=== PATIENT | female | born 1960 | race Caucasian/White ===

== ENCOUNTER 2020-04-08 08:19 | Outpatient (CLI) | payer OTHER, SELFPAY ==
--- NOTE | ~2020-04-08 | MM_ITS ---
EXAMINATION: MM screening [facility] BI w brynn HISTORY: Screening mammogram TECHNIQUE: Craniocaudal and mediolateral oblique 3-D tomosynthesis images were obtained and synthetic 2-D images were generated. CAD analysis was submitted and interpreted. COMPARISON: 04/02/2019, 12/18/2017, 12/12/2016 bilateral digital screening mammogram examinations BREAST PARENCHYMAL COMPOSITION: There are scattered areas of fibroglandular density. FINDINGS: Stable circumscribed 3 mm opacity in posterior lower outer right breast. There is no eviden ce of suspicious mass, calcification, or architectural distortion to suggest malignancy in either mary jo ast. There has been no suspicious interval change. IMPRESSION: 1. No mammographic evidence of malignancy. 2. Recommend routine screening mammography in one year. BI-RADS Category 2: Benign finding(s). Reviewed, dictated and finalized at location A.
== END 2020-04-08 08:20 | disposition home or self-care (01) ==
PROVIDERS: PCP Internal Medicine; Visit Provider Obstetrics & Gynecology
DX: Z12.31 Encounter for screening mammogram for malignant neoplasm of breast (principal)
CPT/HCPCS: 77063; 77067

== ENCOUNTER 2021-04-25 08:06 | Outpatient (CLI) | payer OTHER, SELFPAY ==
--- NOTE | ~2021-04-25 | MM_ITS ---
EXAMINATION: MM screening [facility] BI w brynn HISTORY: Screening mammogram TECHNIQUE: Craniocaudal and mediolateral oblique 3-D tomosynthesis images were obtained and synthetic 2-D images were generated. CAD analysis was submitted and interpreted. COMPARISON: 04/08/2020, 04/02/2019, 12/18/2017 bilateral digital screening mammogram examinations BREAST PARENCHYMAL COMPOSITION: There are scattered areas of fibroglandular density. FINDINGS: Stable circumscribed 3 mm opacity in the posterior outer mid right breast. There is no evid ence of suspicious mass, calcification, or architectural distortion to suggest malignancy in either b reast. There has been no suspicious interval change. IMPRESSION: 1. No mammographic evidence of malignancy. 2. Recommend routine screening mammography in one year. BI-RADS Category 2: Benign finding(s). Reviewed, dictated and finalized at location B.
== END 2021-04-25 08:07 | disposition home or self-care (01) ==
LOC: ANHIMG 08:08
PROVIDERS: PCP Internal Medicine; Visit Provider Nurse Practitioner
DX: Z12.31 Encounter for screening mammogram for malignant neoplasm of breast (principal)
CPT/HCPCS: 77063; 77067

== ENCOUNTER 2023-05-18 10:23 | Outpatient (CLI) | payer OTHER, SELFPAY ==
--- NOTE | ~2023-05-18 | MM_ITS ---
EXAMINATION: MM screening [facility] BI w brynn HISTORY: Screening mammogram TECHNIQUE: Craniocaudal and mediolateral oblique 3-D tomosynthesis images were obtained and synthetic 2-D images were generated. CAD analysis was submitted and interpreted. COMPARISON: 04/25/2021, 04/08/2020, 04/02/2019 BREAST PARENCHYMAL COMPOSITION: There are scattered areas of fibroglandular density. FINDINGS: No suspicious mass, calcification, or architectural distortion are identified in either mary jo ast to suggest malignancy. There has been no suspicious interval change. IMPRESSION: 1. No mammographic evidence of malignancy. 2. Recommend routine screening mammography in one year. BI-RADS Category 1: Negative Reviewed, dictated and finalized at location A.
== END 2023-05-18 10:24 | disposition home or self-care (01) ==
LOC: ANHIMG 10:29
PROVIDERS: PCP Family Medicine; Visit Provider Obstetrics & Gynecology
DX: Z12.31 Encounter for screening mammogram for malignant neoplasm of breast (principal)
CPT/HCPCS: 77063; 77067

== ENCOUNTER 2024-07-16 16:10 | Outpatient (CLI) | payer OTHER, SELFPAY ==
--- NOTE | ~2024-07-16 | MM_ITS ---
EXAMINATION: MM screening [facility] BI w brynn HISTORY: Screening TECHNIQUE: Craniocaudal and mediolateral oblique 3-D tomosynthesis images were obtained and synthetic 2-D images were generated. CAD analysis was submitted and interpreted. COMPARISON: Comparison to multiple prior studies sequentially, with oldest reviewed study dated 10/2016. BREAST PARENCHYMAL COMPOSITION: Not dense: There are scattered areas of fibroglandular density. FINDINGS: There is no evidence of suspicious mass, calcification, or architectural distortion to sugg est malignancy in either breast. There has been no suspicious interval change. IMPRESSION: 1. No mammographic evidence of malignancy. 2. Recommend routine screening mammography in one year. BI-RADS Category 1: Negative Reviewed, dictated and finalized at location B.
== END 2024-07-16 16:11 | disposition home or self-care (01) ==
PROVIDERS: PCP Family Medicine; Visit Provider Family Medicine
DX: Z12.31 Encounter for screening mammogram for malignant neoplasm of breast (principal)
CPT/HCPCS: 77063; 77067

== ENCOUNTER 2025-08-10 07:52 | Outpatient (CLI) | payer MEDICARE, SELFPAY ==
--- NOTE | ~2025-08-10 | MM_ITS ---
EXAMINATION: MM screening [facility] BI w brynn HISTORY: Screening TECHNIQUE: Craniocaudal and mediolateral oblique 3-D tomosynthesis images were obtained and synthetic 2-D images were generated. CAD analysis was submitted and interpreted. COMPARISON: Comparison to multiple prior studies sequentially, with oldest reviewed study dated 12/18/2017. BREAST PARENCHYMAL COMPOSITION: Not dense: There are scattered areas of fibroglandular density. FINDINGS: There is no evidence of suspicious mass, calcification, or architectural distortion to suggest malignancy in either breast. There has been no suspicious interval change. IMPRESSION: 1. No mammographic evidence of malignancy. 2. Recommend routine screening mammography in one year. BI-RADS Category 1: Negative Reviewed, dictated and finalized at location B.
--- OUTSIDE RECORDS SUMMARY | 2025-08-10 07:59 | XMS_ITS | Encounter Summary ---
Author Organization [facility] Address [address] [place] [address] Phone Care Team Providers Care Fountain Clerk Name Role Phone Rodger Molina Primary Care Provider [phone] Nate Gonsalves MD Primary Care Provider [phone] Reason for Visit * Reason Onset Date Comments Skyirizi Maintenance Injections 09/27/2022 Encounter Details Date Type Department Care Team (Late st Contact Info) Description 09/27/2022 Telephone [facility] [address] [place] [address] 12th [place] [address] [place] [address] Yaritza Ogden Skyirizi Maintenance Injections Social History Tobacco Use Types Packs/Day Years Used Date Smoking Tobacco: Never Smokeless Tobacco: Never Alcohol Use Standard Drinks/Week Comments Never 0 (1 standard drink = 0.6 oz pur e alcohol) AUDIT-C Answer Date Recorded Q1: How often do you have a drink containing alc ohol? Never 10/24/2020 Average Number of Drinks Not on file 021 Frequency of Binge Drinking Not on file 10/14 Comments No Sex and Gender Information Value Date Recorded Sex Assigned at Not on file Legal Sex Female 6:59 PM HOSPICE CLINICAL MANAGER Gender Identity Female 05/06/2023 10:40 AM CDT Sexual Orientation Not on file documented as of this encounter Miscellaneous Notes * Telephone Encounter - Yaritza Ogden - 09/27/2022 7:37 AM CST Pt recently completed the 3 induction infusions of Skyrizi via [employer] program since the pts insurance denied the therapy. 3rd induction infusion was received through [facility] on09/17. First OBI maintenance injection is coming due 10/16/2022. Based on the Bridge program requirements, a formal denial is needed for the maintenance injections as well. Prescription has been routed to the pharmacy precert team for PA. Once denial is received, this information will then be sent to the Bridge Program for additional maintenance injection approval with the program. The pt will remain updated on this process. ICE CLINICAL MANAGER documented in this encounter Plan of Treatment Not on file documented as of this encounter Visit Diagnoses Not on filedocumented in this encounter Discontinued Medications Medication Sig Discontinue Reason Start Date End Da te risankizumab-rzaa (SKYRIZI) 60 mg/mL solution Infuse 10 mL (600 mg total) into a venous catheter every 4 (four) weeks for 3 doses To be infused by [facility] 07/12/2022 09/27/2022 documented as of this encounter Additional Health Concerns Infection Onset Date Last Indicated Resolved Time Exposure, COVID-19 Comment:Added automatically based on COVID19 lab answers indicating exposure risk 12/05/2023 12/05/2023 12/15/2023 3:[address] COVID: Suspected 12/05/2023 12/05/2023 12/05/2023 4:17 PM HOSPICE CLINICAL MANAGER COVID: Suspected 12/05/2023 12/05/2023 12/05/2023 8:19 PM HOSPICE CLINICAL MANAGER Exposure, COVID-19 Comment:Added automatically based on COVID19 lab answers indicating exposure risk 11/06/2024 11/06/2024 11/16/2024 3:[address] COVID: Suspected 11/06/2024 11/06/2024 11/06/2024 9:43 AM HOSPICE CLINICAL MANAGER documented as of this encounter Care Teams Fountain Clerk Relationship Specialty Start Date End Date Rodger Molina DO PCP - General Internal Medicine 03/31/19 01/30/23 Nate Gonsalves MD PCP - General Family Medicine 01/31/23 documented as of this encounter
--- OUTSIDE RECORDS SUMMARY | 2025-08-10 07:59 | XMS_ITS | Encounter Summary ---
Author Organization [facility] Address [address] [place] [address] Phone Care Team Providers Care Fish Farm Manager Name Role Phone Rodger Molina Primary Care Provider Nate Gonsalves MD Primary Care Provider [phone] Encounter Details Date Type Department Care Team (Late st Contact Info) Description 04/14/2021 Orders Only TO IM GASTROENTEROLOGY Scanning, Provider Social History Tobacco Use Types Packs/Day Years [...] on file Legal Sex Female 6:59 PM TRUCK RAILROAD AND BUS MOTOR MECHANIC Gender Identity Female 05/06/2023 10:40 AM CDT Sexual Orientation Not on file documented as of this encounter Plan of Treatment Not on file documented as of this encounter Procedures Procedure Name Priority Date/Time Associated Diagnosis Comments SCAN - LABS 04/14/2021 documented in this encounter Results * SCAN - LABS (04/14/2021) us Provider Scanning Final Result documented in this encounter Visit Diagnoses Not on filedocumented in this encounter Additional Health Concerns Infection Onset Date Last Indicated Resolved Time COVID: Suspected 09/17/2021 09/17/2021 09/17/2021 3:17 PM TRUCK RAILROAD AND BUS MOTOR MECHANIC Exposure, COVID-19 Comment:Added automatically based on COVID19 lab answers indicating exposure risk 08/09/2022 08/09/2022 08/19/2022 3:[address] COVID: Suspected 08/09/2022 08/09/2022 08/09/2022 4:32 PM CDT RSV, droplet 08/09/2022 08/09/2022 08/16/2022 3:05 AM CDT Exposure, COVID-19 Comment:Added automatically based on COVID19 lab answers indicating exposure risk 12/05/2023 12/05/2023 12/15/2023 3:[address] COVID: Suspected 12/05/2023 12/05/2023 12/05/2023 4:17 PM TRUCK RAILROAD AND BUS MOTOR MECHANIC COVID: Suspected 12/05/2023 12/05/2023 12/05/2023 8:19 PM TRUCK RAILROAD AND BUS MOTOR MECHANIC Exposure, COVID-19 Comment:Added automatically based on COVID19 lab answers indicating exposure risk 11/06/2024 11/06/2024 11/16/2024 3:[address] COVID: Suspected 11/06/2024 11/06/2024 11/06/2024 9:43 AM TRUCK RAILROAD AND BUS MOTOR MECHANIC documented as of this encounter Care Teams Fish Farm Manager Relationship Specialty Start Date End Date Rodger Molina DO PCP - General Internal Medicine 03/31/19 01/30/23 Nate Gonsalves MD PCP - General Family Medicine 01/31/23 documented as of this encounter
--- OUTSIDE RECORDS SUMMARY | 2025-08-10 07:59 | XMS_ITS | Encounter Summary ---
Author Organization [facility] Address 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
--- OUTSIDE RECORDS SUMMARY | 2025-08-10 07:59 | XMS_ITS | Clinical Summary ---
Author Organization [facility] Address [address] [place] [address] Care Team Providers Care Dust Mill Operator Name Role Phone Unavailable Primary Care Provider Unavailabl e Source Comments [facility],non-owned Affiliates and Associated Physician Practices is amultiple site organization consisting of ambulatory clinics and hospital sitesin [place], [place], [place] and [place]. This disclosure is being madepursuant to the Care Everywhere program and may not contain all information available regarding this patient. Last updated 18.[facility] Social History Tobacco Use Types Packs/Day Years Used Date Smoking Tobacco: Never Assessed Comments Unknown Sex and Gender Information Value Date Recorded Sex Assigned at Not on file Legal Sex Female 6:17 AM TEST MAN Gender Identity Not on file Sexual Orientation Not on file Plan of Treatment Health Maintenance Due Date Last Done Comments BONE DENSITY TESTING 1959 COLOGUARD (AGES 45-75) - COL ON CA SCREENING 1959 COLON MONITORING 1959 COLONOSCOPY - COLON CA SCREENING 1959 CT COLONOGRAPHY - COLON CA SCREENING 1959 Colorectal Cancer Screening 1959 FIT - COLON CA SCREENING 1959 FLEX SIG - COLON CA SCREENING 1959 LIPID TESTING 1959 MAMMOGRAM 1959 HIV SCREENING 1974 HEPATITIS C SCREENING 10/30/1977 DTAP/TDAP/TD VACCINES (1 - Tdap) 1978 PNEUMOCOCCAL VACCINE 50+ (1 of 1 - PCV) 2009 ZOSTER VACCINE (1 of 2) 2009 DEPRESSION SCREENING 10/14/2024 COVID-19 VACCINE (1 - 2023-2 5 season) 2025 INFLUENZA VACCINE (#1) 2025 Respiratory Syncytial Virus (RSV) Vaccine Pt: or over 60 yrs (1 - 1-dose 75+ series) 2034 HEPATITIS B VACCINE Aged Out No longe r eligible based on patient's age to complete this topic HIB VACCINE Aged Out No longer eligi ble based on patient's age to complete this topic HPV VACCINE Aged Out No longer eligi ble based on patient's age to complete this topic MENINGOCOCCAL (Group B) VACC INE SHARED DECISION-MAKING Aged Out No longer eligibl e based on patient's age to complete this topic MENINGOCOCCAL GROUPS A/C/Y/W VACCINE Aged Out No longer eligible b ased on patient's age to complete this topic
--- OUTSIDE RECORDS SUMMARY | 2025-08-10 07:59 | XMS_ITS | Encounter Summary ---
Author Organization [facility] Address [address] [place] [address] Phone Care Team Providers Care Community Service Aide Name Role Phone Nate Gonsalves MD Primary Care Provider [phone] Encounter Details Date Type Department Care Team (Late st Contact Info) Description 07/01/2025 Results Follow-Up [facility]astroenter[facility] [address] Advanced [facility] 12th [place] [address] [place] [address] Jaimee Dowell, ZENON CBC with auto differential, CRP (acute phase) Social History Tobacco Use Types Packs/Day Years Used Date Smoking Tobacco: Never Smokeless Tobacco: Never Alcohol Use Standard Drinks/Week Comments Never 0 (1 standard drink = 0.6 oz pur e alcohol) AUDIT-C Answer Date Recorded Q1: How often do you have a drink containing alcohol? Never 04/27/2025 Q2: How many drinks containi ng alcohol do you have on a typical day when you are drinking? Patient does not drink Q3: How often do you have si x or more drinks on one occasion? Never 04/27/2025 PHQ-2 Answer Date Recorded PHQ-2 Total Score (If total score is 3 or more points, staff should administer the PHQ-9) 0 03/17/2025 Personal Safety Answer Date Recorded Have you ever been in or are you currently in a harmful physical or emotional relationship or is someone making you feel afraid or unsafe? Denies 04/27/2025 Comments No Sex and Gender Information Value Date Recorded Sex Assigned at Not on file Legal Sex Female 6:59 PM CAREER DEVELOPMENT MANAGER Gender Identity Female 05/06/2023 10:40 AM CDT Sexual Orientation Not on file documented as of this encounter Plan of Treatment Not on file documented as of this encounter Visit Diagnoses Not on filedocumented in this encounter Care Teams Community Service Aide Relationship Specialty Start Date End Date Nate Gonsalves MD PCP - General Family Medicine 01/31/23 documented as of this encounter
--- OUTSIDE RECORDS SUMMARY | 2025-08-10 07:59 | XMS_ITS | Encounter Summary ---
Author Organization [facility] Address 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
--- OUTSIDE RECORDS SUMMARY | 2025-08-10 07:59 | XMS_ITS | Encounter Summary ---
Author Organization [facility] Address [address] [place] [address] Care Team Providers Care Consolidator Name Role Phone Unavailable Primary Care Provider Unavailabl e Encounter Details Date Type Department Care Team (Late st Contact Info) Description 07/05/1999 Outpatient Historical [facility] 2L Conversion, History Social History Tobacco Use Types Packs/Day Years Used Date Smoking Tobacco: Never Assessed Comments Unknown Sex and Gender Information Value Date Recorded Sex Assigned at Not on file Legal Sex Female 3:55 AM IS ARCHITECT Gender Identity Not on file Sexual Orientation Not on file documented as of this encounter Plan of Treatment Not on file documented as of this encounter Visit Diagnoses Not on filedocumented in this encounter
--- OUTSIDE RECORDS SUMMARY | 2025-08-10 07:59 | XMS_ITS | Encounter Summary ---
Author Organization [facility] Address [address] [place] [address] Phone Care Team Providers Care Hot Mill Operator Name Role Phone Rodger Molina Primary Care Provider [phone] Nate Gonsalves MD Primary Care Provider [phone] Encounter Details Date Type Department Care Team (Late st Contact Info) Description 06/21/2019 Orders Only TO IM GASTROENTEROLOGY Scanning, Provider Social History Tobacco Use Types Packs/Day Years Used Date Smoking Tobacco: Never Smokeless Tobacco: Never Comments No Sex and Gender Information Value Date Recorded Sex Assigned at Not on file Legal Sex Female 6:59 PM LEGISLATIVE CORRESPONDENT Gender Identity Female 05/06/2023 10:40 AM CDT Sexual Orientation Not on file documented as of this encounter Plan of Treatment Not on file documented as of this encounter Procedures Procedure Name Priority Date/Time Associated Diagnosis Comments SCAN - LABS 06/21/2019 documented in this encounter Results * SCAN - LABS (06/21/2019) us Provider Scanning Final Result documented in this encounter Visit Diagnoses Not on filedocumented in this encounter Additional Health Concerns Infection Onset Date Last Indicated Resolved Time COVID: Suspected 09/17/2021 09/17/2021 09/17/2021 3:17 PM LEGISLATIVE CORRESPONDENT Exposure, COVID-19 Comment:Added automatically based on COVID19 lab answers indicating exposure risk 08/09/2022 08/09/2022 08/19/2022 3:[address] COVID: Suspected 08/09/2022 08/09/2022 08/09/2022 4:32 PM CDT RSV, droplet 08/09/2022 08/09/2022 08/16/2022 3:05 AM CDT Exposure, COVID-19 Comment:Added automatically based on COVID19 lab answers indicating exposure risk 12/05/2023 12/05/2023 12/15/2023 3:[address] COVID: Suspected 12/05/2023 12/05/2023 12/05/2023 4:17 PM LEGISLATIVE CORRESPONDENT COVID: Suspected 12/05/2023 12/05/2023 12/05/2023 8:19 PM LEGISLATIVE CORRESPONDENT Exposure, COVID-19 Comment:Added automatically based on COVID19 lab answers indicating exposure risk 11/06/2024 11/06/2024 11/16/2024 3:[address] COVID: Suspected 11/06/2024 11/06/2024 11/06/2024 9:43 AM LEGISLATIVE CORRESPONDENT documented as of this encounter Care Teams Hot Mill Operator Relationship Specialty Start Date End Date Rodger Molina DO PCP - General Internal Medicine 03/31/19 01/30/23 Nate Gonsalves MD PCP - General Family Medicine 01/31/23 documented as of this encounter
--- OUTSIDE RECORDS SUMMARY | 2025-08-10 07:59 | XMS_ITS | Encounter Summary ---
Author Organization [facility] Address 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
--- OUTSIDE RECORDS SUMMARY | 2025-08-10 07:59 | XMS_ITS | Clinical Summary ---
Author Organization [facility] Address [address] [place] [address] Care Team Providers Care Data Lead Name Role Phone Nate Gonsalves MD Primary Care Provider [phone] Allergies Active Allergy Reactions Criticality Noted Date Comments Hydrocodone-Acetaminoph en Other (See comments) Low Reaction: Other Ketamine Unknown 05/27/2008 Medications bkyiq-1-ydq-ep a-dpa-fish oil 1,050-1,200 mg capsule daily. Active multivit-iron- NA-tknilep-ulc s 27 mg iron-400 mcg tablet daily. Active calcium carbonate (CALCIUM 500 ORAL) 1000mg daily Active cholecalcifero l (VITAMIN D-3) 2,000 unit capsule TAKE ONE CAPSULE BY MOUTH ONCE DAILY 03/31/20 13 Active polysaccharide iron complex (NU-IRON) 150 mg iron capsuleIndicat ions:Iron Deficiency Anemia daily 01/14/20 14 Active artificial tears with lanolin ointmentIndica tions:Dry Eye Apply 1 application to right eye 2 (two) times a day. Active ondansetron (ZOFRAN) 4 mg tablet Take 1 tablet (4 mg total) by mouth every 8 (eight) hours as needed for nausea or vomiting 90 tablet 1 10/01/20 23 Active ALPRAZolam (XANAX) 0.25 mg tabletIndicati ons:YOLIE (generalized anxiety disorder) Take 1 tablet (0.25 mg total) by mouth nightly as needed for anxiety 30 tablet 03/16/20 24 Active syringe with needle 1 mL 27 x 1/2 syringe USE TO INJECT 1ML OF METHOTREXATE SUBQ EVERY 7 DAYS 12 each 1 05/04/20 24 Active citalopram (CeleXA) 40 mg tablet Take 1 tablet (40 mg total) by mouth daily 90 tablet 3 10/16/19 25 Active levothyroxine (SYNTHROID) 112 mcg tablet Take 1 tablet (112 mcg total) by mouth cracking unit operator before breakfast 90 tablet 3 10/16/19 25 Active folic acid (FOLVITE) 1 mg tabletIndicati ons:Crohn's disease of both small and large intestine with intestinal obstruction (HCC),High risk medications (not anticoagulants ) long-term use Take 1 tablet (1,000 mcg total) by mouth daily 90 tablet 3 10/16/19 25 026 Active amoxicillin (AMOXIL) 875 mg tablet Take 1 tablet (875 mg total) by mouth every 12 (twelve) hours 03/09/20 25 Active Skyrizi 360 mg/2.4 mL (150 mg/mL) wearable injector INSERT 1 CARTRIDGE INTO ON-BODY INJECTOR AND INJECT 360 MG UNDER THE SKIN EVERY 8 WEEKS 2.4 mL 1 07/21/20 25 Active Skyrizi 360 mg/2.4 mL (150 mg/mL) wearable injector INSERT 1 CARTRIDGE INTO ON-BODY INJECTOR AND INJECT 360 MG UNDER THE SKIN EVERY 8 WEEKS 2.4 mL 1 03/17/20 25 025 Discontinued Active Problems Problem Noted Date Diagnosed Date Abnormal liver enzymes 04/10/2024 Assessment & Plan (10/09/2024 2:56 PM UPPER MARKER): Her LFTs have been consistently normal since March so we would like her to remain on her current regimen and do not feel lowering the dose of methotrexate is warranted at this time. Assessment & Plan (04/10/2024 4:55 PM CDT): The patient's liver enzymes were normal on her last labs. We will continue to monitor this. If it ultimately least seems to increase with her methotrexate, potentially we could try dropping her dose to 15 mg YOLIE (generalized anxiety disorder) 03/16/2024 Acquired hypothyroidism 03/16/2024 Microcytosis 04/06/2022 Assessment & Plan (04/06/2022 3:39 PM CDT): The patient's MCH and MCV are dropping concerning for emerging iron deficiency. 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 We will recheck her vitamin-D status in June. We will see if a DEXA scan can be arranged the same time as her colonoscopy. High risk for colon cancer 04/13/2019 Overview (04/13/2019): The patient has been diagnosed with Crohn's disease/UC for > 8 years. Surveillance colonoscopy will be arranged in Oct 2020. Seborrheic keratoses 04/23/2016 01/31/2023 Benign neoplasm of soft tissues 04/23/2016 01/31/2023 Skin neoplasm 04/23/2016 01/31/2023 Crohn's disease of both smal l and large intestine with intestinal obstruction 02/13/2016 Overview (04/10/2024): Year of Diagnosis:2004 Year Symptoms Began: 2004 (with obstruction - suggesting earlier onset) Phenotype & Distribution: stricturing fistulizing jejunal, ileal, colonic Previously Failed Treatments: Humira since 08/2010-10/2018, effective but contributed to severe sinusitis so discontinued in favor Stelara), azathioprine (3077-0420 given persistent disease activity), Stelara (started on 01/02/2019, escalated to every 4 weeks in 09/2020 based on low drug level and activity with improvement but we couldn't maintain coverage so patient has been off this since spring 2021), Current Treatment: Skyrizi (started July 2022), methotrexate Therapeutic Drug Monitoring Thiopurine metabolites: 6TG 279, 6MMP 169 09/2020 ADA/IFX/CZB Levels/Abs:NA VDZ: NA UST: 0.8mcg/ml on 07/12/2020 (increased to q4w now 6.7mcg/ml) DEBBY virus titer: 1.06 Complications: Partial small-bowel obstruction, vitamin-D deficiency, infectious consequences of Humira osteopenia Surgeries (Date, type): Ileocolonic resection 2004 Endoscopies (Date, findings, path: Colonoscopy 04/30/2023 ileal ulcers only at anastamosis, otherwise consistent with remission. 6 mm prolapse polyp removed from rectum Colonoscopy 10/24/2020 Impression: - Anal stricture found on digital rectal exam. - Simple Endoscopic Score for Crohn's Disease: 6, mucosal inflammatory changes secondary to Crohn's disease, with ileitis and colitis. Biopsied. - Stricture at the ileal surgical anastomosis. Dilated. - Nodular and pseudopolypoid mucosa at 10 cm proximal to the anus. Biopsied. - Background biopsies were taken from the entire colon. Pathology: agnosis: A. Small bowel, neoterminal ileum, biopsy - Small intestinal mucosa with focal mild acute inflammation with cryptitis and mucosal granulomas - No dysplasia B. Large bowel, random colon, biopsy - Colonic mucosa with chronic inactive colitis - No active inflammation and no dysplasia C. Large bowel, nodule at 10 cm, biopsy - Colonic mucosa with mild hyperplastic change - No active inflammation and no dysplasia IMAGING: MRE 01/21/2023 Bowel: Multifocal (skip) segments of active inflammation are again seen in the jejunum with persistent mural thickening, luminal narrowing, contrast enhancement and diffusion restriction (series 2, image 16, image 7). However, there has been interval resolution upstream dilatation and stricturing. The overall extent is similar to the prior examination. There is slight interval increase in active inflammation involving the neoterminal ileum (series 2, image 10) with mild enhancement mural thickening. No upstream dilatation or stricturing. MRE 03/14/2021 1. Persistent active inflammation involving the jejunum with additional skip lesions that are overall stable in extent although mildly improved in severity. Persistent luminal narrowing and upstream dilation that meets imaging criteria for stricturing. 2. Unchanged focal T2 hypointense wall thickening with luminal narrowing involving the neoterminal ileum, without active inflammation or upstream dilation. MRE 11/19/2020 Bowel: There is active inflammation of 3 skip lesions in the distal jejunum with wall thickening and hyperenhancement.. The most proximal of which measures 8 cm with luminal narrowing due to a stricture (series 24, image 46; series 20, image 57) with moderate to severe upstream dilation measuring 4 cm (series 26, image 33). There is engorgement of the vasa recta at this level. A another site in the distal jejunum is seen on series 20, image 49 and series 24, image 36, measuring 3.5 cm in thickness, and a third site is seen on series 20, image 38, and series 24, image 40. A prior ileocolic resection is seen. No inflammation is seen in the neoterminal ileum or colon. No penetrating disease is seen. Assessment & Plan (10/09/2024 2:55 PM UPPER MARKER): Clinically and endoscopically the patient is doing better on Skyrizi with methotrexate. We would like to continue this for the foreseeable future. She will need a repeat colonoscopy in late summer 2024. This can be done with Dr. David or with Dr. Louis Pickard if there would be benefit from advancing higher in the small intestine to evaluate more proximal strictures. We will reach out to Dr. David for his preference. The patient will need safety labs in December and will let us know if her new insurance will require a different laboratory. Currently she is required to go to [facility] Assessment & Plan (04/10/2024 4:54 PM CDT): Patient appears to be getting Skyrizi through the [employer] program so hopefully will not experience any interruptions in her medications when she shifts to Medicare. We would like her to continue methotrexate with folic acid. We will get her scheduled for a repeat MR enterography to evaluate for impact of adding methotrexate. There was progress on her last MRI. As for her next colonoscopy, unless she feels the need for dilation of her anal stricture, it likely could be delayed until next year as there was only a small amount of erosions at her anastomosis and the polyp seen was a mucosal prolapse polyp. We will continue to monitor her labs quarterly and a new standing order was placed Assessment & Plan (09/13/2023 4:52 PM UPPER MARKER): The patient continues to have some areas where she may have some discomfort and some stool irregularity but overall is not doing poorly and has not had any obstructive symptoms. Her colonoscopy was quite reassuring but there was still areas of enhancement on the MR enterography from January. Happily the areas of clear stricturing and upstream dilation had resolved. The patient indicates that she is not been taking her methotrexate in quite some time but had tolerated. In an effort to resolve all inflammation, we would like to see if restarting the methotrexate with her Skyrizi would have a superior impact. If this still isn't great, we could consider switching back to azathioprine though she had some skin issues on it and was never able to achieve full remission while on it. We will continue to monitor her labs quarterly Assessment & Plan (11/19/2022 12:25 PM UPPER MARKER): Overall, patient's symptoms have improved since starting Skyrizi. She has had 3 induction doses and is now awaiting approval (working with [employer]). - Will plan for colonoscopy February 2023 - She was due for lab which she states were drawn this morning. We will follow these labs - She will message us in one week with updates from [employer] Assessment & Plan (07/14/2022 5:02 PM CDT): Happily the patient still isn't doing poorly but we are concerned that she is not fully in remission and is having to make additional accommodations for her activity. Her weight is down 4 lb since last seen. We are hopeful to get Skyrizi started as soon as possible. At present she does not want to start budesonide but she is encouraged to contact us if her symptoms change or if her hemoglobin starts did decline again with her next safety labs. Assessment & Plan (04/06/2022 3:52 PM CDT): Happily the patient remains largely asymptomatic with only a slight uptake in her stool frequency. Her MCV seems to be dropping suggestive of emerging iron deficiency which also likely suggests increasing Crohn's activity. The patient had a response to Stelara but we were not able to maintain it and especially at the frequency necessary for her disease. We would like to submit for Skyrizi as it is very similar to Stelara in terms of mechanism and safety and therefore should be effective and hopefully better covered. While Remicade remains an option, Dr. David is worried that this would have more infectious consequences given her issues with Humira. She is not a candidate for Tysabri as she has a positive DEBBY virus titer. Plan 1. Onboarding labs at [facility] 2. Submit for Skyrizi 3. Continue methotrexate 4. Patient will contact us if she experiences any increase in flare symptoms as we may need to offer steroid bridging 5. She will eventually need a repeat colonoscopy in imaging to verify remission 6. We will refill her Zofran in case she develops flare symptoms Assessment & Plan (11/28/2021 6:41 PM UPPER MARKER): Prior to the end of the year the patient was not doing poorly and had been able to tolerate full dose methotrexate with monthly Stelara. Unfortunately since the end of the year she has had more challenges with maintaining her monthly dosing of Stelara due to a specialty pharmacy changed and now her insurance denying coverage. She is approximately 2 weeks late for her Stelara and is very disheartened with the challenges she has had to maintain this. She indicates that she has been told by [facility] that she has an outstanding bill of 60,000 dollars. The patient has had significant issues with infections in the past and was tolerating Stelara well. We would like to advocate for discontinuation in any way possible. We discussed alternatives if this is not feasible. Seemingly she has not been on Remicade, Cimzia, or Tysabri. Dr. David is concerned about infection with Remicade. As we do not have a DEBBY virus titer, we do not know if Tysabri is even an option. 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 We will offer the patient samples of Stelara to get her back on track while we appeal with her insurance and look in to [employer] support. She may be eligible for clinical trial but given the extensiveness of her disease the risk of a placebo is very concerning. We have asked her to get a DEBBY virus titer checked for reference. She will need a repeat colonoscopy and imaging at some point this year but we need to make sure that she is settled on a medication before this. Assessment & Plan (04/14/2021 5:51 PM CDT): The patient reports that she is tolerating methotrexate with only mild fatigue and nausea. Her imaging from 03/14/2020 showed some mild improvement since switching to methotrexate in mid December. We would like to give this additional time to see if this combination will be superior and able to achieve remission. As there is known stricturing, she should still be careful with her diet. We will get safety labs in a couple weeks to verify that she is tolerating methotrexate from a liver and bone marrow perspective. Plan 1. Safety labs in a couple weeks 2. Continue methotrexate 25 mg weekly for now with monthly Stelara 3. Consider repeat colonoscopy and cross-sectional imaging in October 2021 Assessment & Plan (12/24/2020 12:24 PM UPPER MARKER): Overall the patient has done quite well on this combination of Stelara and azathioprine. Her drug levels are ideal but unfortunately she has areas of acute inflammation with concern for stricturing in the jejunum. Happily the ileum and colon appear well controlled. As she has tolerated Stelara well without recurrence of the Infectious consequences she suffered with Humira, we would like to see if she is more responsive to methotrexate compared to azathioprine. We will have her discontinue azathioprine now and start injectable methotrexate in a week, titrating from 15 mg to a goal of 25 mg per week. She was offered folic acid and Zofran if needed. We would like her to remain on Entocort for at least another month as a bridge and in an effort to manage this ileal activity. As she is having insomnia related to the prednisone, she is asked to drop the dose to 5 mg and if this is still problematic dropped entirely but remain on Entocort. We also discussed the possibility of Remicade, Marguerite Mcgraw. We did not discuss surgery but remains an option if she develops obstructive symptoms but as there was no inflammatory component, we would prefer to manage the inflammation 1st Plan 1. Switch from a azathioprine to methotrexate 2. Continue Stelara monthly 3. Plan for a repeat MR enterography after 3-5 months on methotrexate with Stelara 4. Consider switch to Remicade if persistent inflammation Assessment & Plan (10/17/2020 12:35 PM UPPER MARKER): Currently appears to be in clinical remission. However, she had obstructive symptoms back in July. Needs colonoscopy to reassess and dilate. We discussed the possibility of getting a CT scan, but ultimately decided that if her ileum was visible and not inflamed on last colonoscopy, then we could continue to do colonoscopies and dilate as needed. She should continue her routine laboratories. Stelara levels and azathioprine are good so continue at same dose including Stelara q.4 weeks. I think the obstructive episodes or symptomatic episodes in July or likely related to the stricture. Therefore we will repeat the colonoscopy, but I also want to have her see the dietitian. She will follow-up with the MATERIALS TECHNICIAN and dietitian soon. Assessment & Plan (05/06/2020 4:38 PM CDT): We are pleased that the patient continues to benefit from Stelara in terms of managing her Crohn's but also in its reduced side effects. She has not had trouble with chronic sinusitis or facial cellulitis to the level that she had before. We are concerned that she has anticipatory symptoms the week prior to her Stelara injection. We would like to check her trough level just prior to her 07/03/2020 injection. If her levels are are low, we will need to shorten her interval. Once the patient is Stelara levels are appropriate, we would recommend a repeat colonoscopy to verify that Stelara is keeping her in mucosal remission. This will also offer us another opportunity to dilate her known strictures to maintain patency. Plan 1. Continue current medications 2. Check Stelara trough level in mid June 3. When Stelara levels adequate, plan for repeat colonoscopy to verify mucosal remission on Stelara as last colonoscopy was performed on Humira. Iron deficiency anemia 09/14/2014 3 High risk medications (not anticoagulants) long- term use 09/14/2014 01/31/2023 Assessment & Plan (04/10/2024 4:54 PM CDT): The patient should continue to follow closely with her care team for other healthcare needs and stay up-to-date with her vaccinations and screenings. 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 Given her stricture, we would recommend that she be fairly careful with high residue foods High risk medications (not a nticoagulants) long-term use 04/13/2019 03/16/2024 Overview (10/17/2020): Started stelara in December 2018. Was having chronic sinusitis and cellulitis on humira. Now on stelara q4 weeks. Assessment & Plan (09/13/2023 4:53 PM UPPER MARKER): The patient reports that she was able to get an updated COVID vaccine, flu shot, and 2nd shingles vaccine. We would recommend that she get RSV particularly as she is surrounded by children on a regular basis Assessment & Plan (11/26/2022 10:28 AM UPPER MARKER): High risk medications: As with all patients taking immunosuppressive biologic therapies or immunomodulators, we provide a balanced discussion on benefits and risks associated with these medications. Regarding potential risks, we employ a strategy of active monitoring for medication related toxicities. Toxicities and risks discussed in monitoring include, but are not limited to the following: infusion reactions including anaphylaxis; bacterial, viral and fungal infections; pancreatitis; heart failure; neurologic reactions; hematologic and solid tumors malignancy including an increased risk of lymphoma and skin cancers; bone marrow toxicity including anemia, lymphopenia and immune suppression; hepatotoxicity and potential renal toxicity. Patients are actively assessed through routine laboratories (Q4 month or more frequently) which I personally review and are encouraged to contact us with any questions regarding new symptom development. Assessment & Plan (07/14/2022 5:03 PM CDT): The patient is encouraged to get vaccinated for the new COVID booster, flu shot, Shingrix. She also looks like she would be eligible for a booster of Pneumovax. In addition she is eligible for Evusheld. With regards to prioritization, we would recommend prioritizing the flu shot and COVID booster. Assessment & Plan (04/06/2022 3:40 PM CDT): The patient should continue to follow closely with her care team including Dermatology and ENT. This will be more important still if we need to use Remicade. Assessment & Plan (04/14/2021 6:00 PM CDT): Happily the patient has not had any infectious consequences of starting methotrexate. The labs she was able to get us from January showed a very mild elevation of AST and ALT. We will monitor this further. She has had some alkaline phosphatase elevations since 2019. Assessment & Plan (12/24/2020 12:25 PM UPPER MARKER): The patient is up-to-date with her vaccines. We are aware that she had significant infection issues with Humira and should we need to switch to Remicade will need to being extra vigilant. Assessment & Plan (10/17/2020 12:34 PM UPPER MARKER): High risk medications: As with all patients taking immunosuppressive biologic therapies or immunomodulators, we provide a balanced discussion on benefits and risks associated with these medications. Regarding potential risks, we employ a strategy of active monitoring for medication related toxicities. Toxicities and risks discussed in monitoring include, but are not limited to the following: infusion reactions including anaphylaxis; bacterial, viral and fungal infections; pancreatitis; heart failure; neurologic reactions; hematologic and solid tumors malignancy including an increased risk of lymphoma and skin cancers; bone marrow toxicity including anemia, lymphopenia and immune suppression; hepatotoxicity and potential renal toxicity. Patients are actively assessed through routine laboratories (Q4 month or more frequently) which I personally review and are encouraged to contact us with any questions regarding new symptom development. In the setting of the COVID-19 pandemic, we are proactively addressing patient concerns through providing clear communication on current expert opinion (and data as becomes available) with regard to SARS-Co-V-2/COVID-19 and IBD as well as IBD Therapy. We regularly update our [email or web address] website and social media feeds to further communicate this information. All of our recommendations are also in line with the CDC as well as professional societies including the international organization for the study of inflammatory bowel disease as well as the Crohn's and Colitis Foundation patient education recommendations. General Recommendations include: 1. COVID-19 is the disease caused by the SARS-CoV-2 virus, but patients with IBD do not appear to be at a higher risk for infection with SARS-CoV-2 or development of COVID-19. 2. Patients with IBD who do not have infection with SARS-CoV-2 should NOT discontinue their IBD therapies and should continue infusion schedules at appropriate infusion centers. 3. Patients with IBD who have known SARS-CoV-2 but have not developed COVID-19 should hold thiopurines, methotrexate, and tofacitinib. Dosing of biological therapies should be delayed for 2 weeks monitoring for symptoms of COVID-19. 4. Patients with IBD who develop COVID-19 should hold thiopurines, methotrexate, tofacitinib, and biological therapies during the viral illness. These may be restarted after complete symptom resolution or, if available, when follow-up viral testing is negative or serologic tests demonstrate the convalescent stage of illness. 5. The severity of the COVID-19 and the severity of the IBD should result in careful risk/benefit assessments regarding treatments for COVID-19 and escalating treatments for IBD. 6. Please submit cases of IBD and confirmed COVID-19 to the SECURE-IBD registry at [email or web address]. https://www.crohnscolitisfoundation.org/coronavirus/mopu-lms-mwdaqtzc-should-kno w https://www.cdc.gov/coronavirus/2019-nCoV/index.html https://www.ioibd.org/iomip-mxjvga-hd-idcfb98-uav-jwjqlbxc-jcsp-bwcdpv-ofrajav-a nd-ul cerative-colitis/ Assessment & Plan (05/06/2020 4:39 PM CDT): The patient's lymphocyte is were low on the last 2 CBCs. She has lost weight which may have raised her 6 TG effectively. We will check metabolites with her Stelara level in June Assessment & Plan (04/13/2019 10:49 AM CDT): High risk medications: As with all patients taking immunosuppressive biologic therapies or immunomodulators, we provide a balanced discussion on benefits and risks associated with these medications. Regarding potential risks, we employ a strategy of active monitoring for medication related toxicities. Toxicities and risks discussed in monitoring include, but are not limited to the following: infusion reactions including anaphylaxis; bacterial, viral and fungal infections; pancreatitis; heart failure; neurologic reactions; hematologic and solid tumors malignancy including an increased risk of lymphoma and skin cancers; bone marrow toxicity including anemia, lymphopenia and immune suppression; hepatotoxicity and potential renal toxicity. Patients are actively assessed through routine laboratories (Q4 month or more frequently) which I personally review and are encouraged to contact us with any questions regarding new symptom development. 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/27/2016 01/31/2023 03/16/2024 Conjunctivitis 07/19/2016 01/31/2023 01/31/2023 Allergic conjunctivitis 07/18/2016 01/31/202301/13 Conjunctivitis, viral 07/05/2016 01/31/20232022 Anemia 07/29/2014 01/31/2023 03/16/2024 Encounters Date Type Department Care Team Description 07/01/2025 Results Follow-Up [facility] Medicine Gastroenterology [address] Advanced [facility] [address]th [place] [address] [place] [address] Jaimee Dowell RN CBC with auto differential, CRP (acute phase) from Last 3 Months Immunizations Immunization Administration Dates Next Due COVID-19 MRNA (MODERNA) .5 M L (50 MCG) VACCINE (12 YEARS AND UP) 07/26/2023 Influenza, Quadrivalent, Courtney l Culture-based MDCK, Preservative Free, Antibiotic Free, Intramuscular 07/22/2019,07/22/2019 Influenza, Quadrivalent, Rec ombinant, Egg Free, Preservative Free, Intramuscular 07/07/2023 Influenza, Quadrivalent, Spl it, Intramuscular 07/24/2017,09/23/2015 Influenza, Quadrivalent, Spl it, Preservative Free, Intramuscular 08/24/2021,08/05/2020,07/27/2018,07/26 Influenza, Unspecified 09/16/2013,06/25/2012 Pfizer SARS-CoV-2 Monovalent Vaccination (12+ Yrs) ROB-READY TO USE 04/12/2022 Pfizer SARS-CoV-2 Monovalent Vaccination (12+ Yrs) PURPLE 11/18/2020,11/18/2020,10/28/2020,10/28 Pfizer SARS-CoV-2 Monovalent Vaccination (5-11 Yrs) 09/15/2021 Pfizer Sars-Cov-2 Bivalent V accination (12+ YRS) 08/31/2022 Pneumococcal Conjugate PCV 13 04/13/2019 Pneumococcal Polysaccharide PPV23 08/24/2010 Pneumococcal, Unspecified 10/14/2010 Tdap 12/31/2013 Tetanus toxoid, adsorbed 10/14/2006 ZOSTER Recombinant 05/14/2023,03/14/2023 Surgical History Surgery Date Site/Laterality Comments AR DILATION & CURETTAGE DX&/THER NONOBSTETRIC CHOLECYSTECTOMY 10/14/1999 - 10/13/2000 BOWEL RESECTION 10/14/2004 - 10/13/2005 Ileocolic resection CRANIOTOMY for acoustic neuroma, gold weight in right eye TOOTH EXTRACTION 03/10/2025 Medical History Medical History Date Comments Chronic sinusitis Recurrent sinu s infections - (Added by TW Conv) Personal history of other di seases of the digestive system History of small bowel obstr uction - (Added by TW Conv) Right acoustic neuroma (HCC) 1997 Res ection c/b R facial paralysis, blindness R eye, hearing loss R ear Depression Thyroid disorder ZACKERY (iron deficiency anemia) Crohn's disease (HCC) 2004 Placenta accreta Family History Medical History Relation Name Comments Melanoma Brother 1 Family history of melanoma - (Added by TW Conv) Melanoma Brother 2 Family history of melanoma - (Added by TW Conv) Hypertension Father Family history of hypertension - (Added by TW Conv)/Family history of hypertension - (Added by TW Conv) Cancer Mother Family history of malignant neoplasm - (Added by TW Conv)/Family history of malignant neoplasm - (Added by TW Conv) Cancer Other 1 Family history of malignant neoplasm - (Added by TW Conv) Hypertension Other 2 Family history of hypertension - (Added by TW Conv) Cancer Other 3 Family history of malignant neoplasm - (Added by TW Conv) Hypertension Other 4 Family history of hypertension - (Added by TW Conv) Melanoma Sister 1 Family history of melanoma - (Added by TW Conv) Melanoma Sister 2 Family history of melanoma - (Added by TW Conv) Relation Name Status Comments Brother 1 Brother 2 Father Mother Other 1 Other 2 Other 3 Other 4 Sister 1 Sister 2 Social History Tobacco Use Types Packs/Day Years Used Date Smoking Tobacco: Never Smokeless Tobacco: Never Tobacco Cessation:Counseling Given: Not Answered Alcohol Use Standard Drinks/Week Comments Never 0 [...] on file 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 Gender Identity Female 05/06/2023 10:40 AM CDT Sexual Orientation Not on file Obstetrics History Last Filed Vital Signs Vital Sign Reading Time Taken Comments Blood Pressure 156/97 04/27/2025 11:00 AM CDT Pulse 62 04/27/2025 11:05 AM CDT Temperature 36.2 C (97.2 F) 04/27/2025 10:30 AM CDT Respiratory Rate 16 04/27/2025 11:05 AM CDT Oxygen Saturation 98% 04/27/2025 11:05 AM CDT Inhaled Oxygen Concentration - - Weight 73.5 kg (162 lb) 04/27/2025 8:32 AM CDT Height 172.7 cm (5' 8) 04/27/2025 8:32 AM CDT Body Mass Index 24.63 04/27/2025 8:32 AM CDT Plan of Treatment Health Maintenance Due Date Last Done Comments Cervical Cancer Screening 1960 Hepatitis C Screening 1960 Osteoporosis Screening-Bone Density Scan 1960 Hepatitis B Screening 1977 DTaP/Tdap/Td Vaccine (2 - Td or Tdap) 01/01/2024 12/31/2013, 10/14/2006 Pneumococcal vaccine 65+ (3 of 3 - PCV20 or PCV21) 04/13/2024 04/13/2019, 10/14/2010, 08/24/2010 Covid-19 Vaccine (2024-2 6 season) 2025 07/26/2023, 08/31/2022, 04/12/2022, Additional history exists Influenza Vaccine (#1) 2025 , 08/24/2021, 08/05/2020, Additional history exists Breast Cancer Screening-Mammogram 07/20/2025 07/20/2024, 04/25/2021, 04/25/2021, Additional history exists Depression Screening 03/17/2026 03/17/2025, 03/16/2024, 01/31/2023 Well Visit 65+ 03/17/2026 03/17/2025 Fall Risk Assessment 04/27/2026 04/27/2025, 03/17/20 25 Colon Cancer Screening-Colonoscopy 04/27/2027 04/27/2025, 04/30/2023, 10/24/2020, Additional history exists Zoster Vaccine Completed 05/14/2023, 03/14/2023 Colon Cancer Screening-CT Colonography Discontinued 04/27/2025, 04/30/2023, 10/24/2020, Additional history exists Colon Cancer Screening-DNA Stool Discontinued 04/27/2025, 04/30/2023, 10/24/2020, Additional history exists Colon Cancer Screening-FIT Discontinued 04/27, 04/30/2023, 10/24/2020, Additional history exists Colon Cancer Screening-Sigmoidoscopy Discontinued 04/27/2025, 04/30/2023, 10/24/2020, Additional history exists Medical Devices Implanted Type Area Resort Housekeeper Device Identifier Shelf Expiration Date Model / Serial / Lot Eyelide Weight,Gold Right: Eye Procedures Procedure Name Priority Date/Time Associated Diagnosis Comments CRP (ACUTE PHASE) Routine 06/30/2025 8:5 2 AM CDT Crohn's disease of both small and large intestine with intestinal obstruction (HCC) High risk medications (not anticoagulants) long-term use CBC WITH AUTO DIFFERENTIAL Routine 06/30/2025 8:51 AM CDT Crohn's disease of both small and large intestine with intestinal obstruction (HCC) High risk medications (not anticoagulants) long-term use COLONOSCOPY 04/27/2025 9:14 AM CDT SCREENING MAMMOGRAM BILATERAL W HANNAH Schedule Routine, Read Routine (OP Routine) 07/20/2024 Encounter for screening for malignant neoplasm of breast, unspecified screening modality from Last 3 Months or Most Recently Relevant to Health Maintenance Results * CRP (acute phase) (06/30/2025 8:52 AM CDT) CRP <1 0 - 10 mg/L [facility] - 01 Blood 06/30/2025 8:52 AM CDT 06/30/2025 Narrative [facility] - 07/01/2025 4:07 AM CDT Performed at: [facility] [id number] Window And Siding Craftsman: Kwaku Guerrero PhD, Phone: [phone] us Ross David MD LAB BLOOD ORDERABLES Fin al Result [facility] - 01 * CBC with auto differential (06/30/2025 8:51 AM CDT) WBC 5.1 3.4 - 10.8 x10E3/uL [facility] - 01 RBC 4.60 3.77 - 5.28 x10E6/uL [facility] - 01 Hgb 13.8 11.1 - 15.9 g/dL [facility] - 01 Hct 41.6 34.0 - 46.6 % [facility] - 01 MCV 90 79 - 97 fL [facility] - 01 MCH 30.0 26.6 - 33.0 pg [facility] - 01 MCHC 33.2 31.5 - 35.7 g/dL [facility] - 01 Rdw 13.2 11.7 - 15.4 % [facility] - 01 Platelets 262 150 - 450 x10E3/uL [facility] - 01 Neutrophils pct 70 Not Estab. % [facility] - 01 Lymphs pct 17 Not Estab. % [facility] - 01 Monocytes pct 8 Not Estab. % [facility] - 01 Eosinophils pct 4 Not Estab. % [facility] - 01 Basophil pct 1 Not Estab. % [facility] - 01 Neutrophil abs 3.6 1.4 - 7.0 x10E3/uL [facility] - 01 Lymphs (Absolute) 0.9 0.7 - 3.1 x10E3/uL [facility] - 01 Monocyte abs 0.4 0.1 - 0.9 x10E3/uL [facility] - 01 Eosinophils, abs 0.2 0.0 - 0.4 x10E3/uL [facility] - 01 Basophils, abs 0.1 0.0 - 0.2 x10E3/uL [facility] - 01 Immature Granulocytes 0 Not Estab. % [facility] - 01 Immature Grans (Abs) 0.0 0.0 - 0.1 x10E3/uL [facility] - 01 Blood 06/30/2025 8:51 AM CDT 06/30/2025 Narrative [facility] - 06/30/2025 11:08 PM CDT Performed at: - [facility] [address] [id number] Window [employer] Siding Craftsman: Kwaku Guerrero PhD, Phone: [phone] us Ross David MD LAB BLOOD ORDERABLES Fin al Result [facility] - 01 * Colonoscopy (04/27/2025 9:14 AM CDT) Anatomical Region Laterality Modality Other Narrative Procedure Note Ross David MD - 04/27/2025 9:14 AM CDT ENDOSCOPY LAB Patient Name: Annamarie Kimble Procedure Date: 04/27/2025 9:14 AM Date of : 1960 Admit Type: Outpatient Age: 64 Gender: Female Attending MD: Ross David M.D., Room: [facility] ENDOSCOPY ROOM 05 Note Status: Finalized Procedure: Colonoscopy Indications: High risk colon cancer surveillance: Crohn'scolitis of 8 (or more) years duration with one-third (ormore) of the colon involved Providers: Ross David M.D. Referring MD: Ross David M.D. Medicines: Monitored Anesthesia Care Complications: No immediate complications. Estimated Blood Loss: Estimated blood loss: none. Procedure: Pre-Anesthesia Assessment: - Prior to the procedure, a History and Physicalwas performed, and patient medications, allergies and sensitivities were reviewed. The patient'stolerance of previous anesthesia was reviewed. - Immediately prior to administration ofmedications, the patient was re-assessed for adequacy to receive sedatives. The benefits, risks and alternatives of theprocedure and sedation were discussed and informed consentwas obtained. All questions were answered. Please referto the signed informed consent document in the medical record. The scope was passed under direct vision.The [id number] was introduced through the anusand advanced to 10 cm into the ileum. The colonoscopywas performed without difficulty. The patient tolerated the procedure well. The quality of the bowel preparation was evaluated using the BBPS (BostonBowel Preparation Scale) with scores of: Right Colon = 3, Transverse Colon = 3 and Left Colon = 3 (entiremucosa seen well with no residual staining, smallfragments of stool or opaque liquid). The total BBPS score equals 9. The quality of the bowel preparation was excellent. Bowel prep was administered using asplit dose. Findings: The perianal and digital rectal examinations were normal. The Simple Endoscopic Score for Crohn's Disease was determined basedon the endoscopic appearance of the mucosa in the following segments: - Ileum: Findings include no ulcers present, no ulcerated surfaces,no affected surfaces and no narrowings. Segment score: 0. - Right Colon: Findings include no ulcers present, no ulcerated surfaces, no affected surfaces and no narrowings. Segment score: 0. - Transverse Colon: Findings include no ulcers present, no ulcerated surfaces, no affected surfaces and no narrowings. Segment score: 0. - Left Colon: Findings include no ulcers present, no ulceratedsurfaces, no affected surfaces and no narrowings. Segment score: 0. - Rectum: Findings include no ulcers present, no ulcerated surfaces,no affected surfaces and no narrowings. Segment score: 0. - Total SES-CD aggregate score: 0. Background biopsies were taken for histology with a cold forceps from the right colon and rectosigmoid colon. These biopsy specimens were sent to Pathology. There was evidence of a prior [id number] ileo-colonic anastomosisin the cecum. This was patent and was characterized by healthy appearing mucosa. Impression: - Simple Endoscopic Score for Crohn's Disease: 0, mucosal inflammatory changes secondary to Crohn's disease, in remission. - Patent [id number] ileo-colonic anastomosis, characterized by healthy appearing mucosa. - Background biopsies were taken from the rightcolon and rectosigmoid colon. Recommendation: - Continue present medications. - Await pathology results. - Return to nurse practitioner as previouslyscheduled. Attending Participation: I personally performed the entire procedure. Electronically signed by Ross David MD Ross David M.D. 04/27/2025 10:40:14 AM Number of Addenda: 0 Note Initiated On: 04/27/2025 9:14 AM us Ross David MD ENDOSCOPY PROCEDURES Fin al Result * SCREENING MAMMOGRAM BILATERAL W HANNAH (07/20/2024) Anatomical Region Laterality Modality Breast Bilateral Mammography Zaida Bowens IMG MAMMO PROCEDURES Fin al Result from Last 3 Months or Most Recently Relevant to Health Maintenance Insurance [employer] MEDICARE [facility] MEDICARE Advance Directives For more information, please contact: [phone] * Full Code (Latest Code Status on File) Date Activated Date Inactivated Comments 04/27/2025 10:26 AM 04/27/2025 3:34 PM * Full Code Date Activated Date Inactivated Comments 04/27/2025 8:32 AM 04/27/2025 10:26 AM * Full Code Date Activated Date Inactivated Comments 04/30/2023 8:39 AM 04/30/2023 2:33 PM * Full Code Date Activated Date Inactivated Comments 04/30/2023 8:38 AM 04/30/2023 8:38 AM * Full Code Date Activated Date Inactivated Comments 10/24/2020 8:54 AM 10/24/2020 1:07 PM Care Teams Data Lead Relationship Specialty Start Date End Date Nate Gonsalves MD PCP - General Family Medicine 01/31/23
--- OUTSIDE RECORDS SUMMARY | 2025-08-10 07:59 | XMS_ITS | Clinical Summary ---
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
--- OUTSIDE RECORDS SUMMARY | 2025-08-10 07:59 | XMS_ITS | Encounter Summary ---
Author Organization [facility] Address [address] [place] [address] Phone Care Team Providers Care Delinquency Counselor Name Role Phone Rodger Molina Primary Care Provider Nate Gonsalves MD Primary Care Provider [phone] Encounter Details Date Type Department Care Team (Late st Contact Info) Description 10/04/2019 Orders Only TO IM GASTROENTEROLOGY Scanning, Provider Social History Tobacco Use Types Packs/Day Years Used Date Smoking Tobacco: Never Smokeless Tobacco: Never Comments No Sex and Gender Information Value Date Recorded Sex Assigned at Not on file 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 Gender Identity Female 05/06/2023 10:40 AM CDT Sexual Orientation Not on file documented as of this encounter Plan of Treatment Not on file documented as of this encounter Procedures Procedure Name Priority Date/Time Associated Diagnosis Comments SCAN - LABS 10/04/2019 documented in this encounter Results * SCAN - LABS (10/04/2019) us Provider Scanning Final Result documented in this encounter Visit Diagnoses Not on filedocumented in this encounter Additional Health Concerns Infection Onset Date Last Indicated Resolved Time COVID: Suspected 09/17/2021 09/17/2021 09/17/2021 3:17 PM AGRICULTURAL SCIENCES PROFESSOR Exposure, COVID-19 Comment:Added automatically based on COVID19 lab answers indicating exposure risk 08/09/2022 08/09/2022 08/19/2022 3:[address] COVID: Suspected 08/09/2022 08/09/2022 08/09/2022 4:32 PM CDT RSV, droplet 08/09/2022 08/09/2022 08/16/2022 3:05 AM CDT Exposure, COVID-19 Comment:Added automatically based on COVID19 lab answers indicating exposure risk 12/05/2023 12/05/2023 12/15/2023 3:[address] COVID: Suspected 12/05/2023 12/05/2023 12/05/2023 4:17 PM AGRICULTURAL SCIENCES PROFESSOR COVID: Suspected 12/05/2023 12/05/2023 12/05/2023 8:19 PM AGRICULTURAL SCIENCES PROFESSOR Exposure, COVID-19 Comment:Added automatically based on COVID19 lab answers indicating exposure risk 11/06/2024 11/06/2024 11/16/2024 3:[address] COVID: Suspected 11/06/2024 11/06/2024 11/06/2024 9:43 AM AGRICULTURAL SCIENCES PROFESSOR documented as of this encounter Care Teams Delinquency Counselor Relationship Specialty Start Date End Date Rodger Molina DO PCP - General Internal Medicine 03/31/19 01/30/23 Nate Gonsalves MD PCP - General Family Medicine 01/31/23 documented as of this encounter
== END 2025-08-10 07:53 | disposition home or self-care (01) ==
LOC: ANHFOHIMG 07:54
PROVIDERS: PCP Family Medicine; Visit Provider Obstetrics & Gynecology
DX: Z12.31 Encounter for screening mammogram for malignant neoplasm of breast (principal)
CPT/HCPCS: 77063; 77067